=== PATIENT | female | born 1950 | race Caucasian/White ===

== ENCOUNTER → 2016-10-18 | Outpatient (CLI) | payer BC ==
[~2016-10-18] MED LIST: ALL180 PO; ASPI81TA21 PO; ATOR-22 PO; CHOL100010 PO; COEN30CA3 PO; CYAN10005 PO; DOCU-94 PO; FISHOIL PO; FLUT0.15 NAE; GLC5 PO; GLC500 PO; GLUCTAB7 PO; HYDC25 PO; INSU1INJ23 SC; LEVO75TA PO; LISI-725 PO; MONT1TAB3 PO; NVLGI SC; OMEP20CA59 PO
--- NOTE | 2016-10-22 12:23 | CODING QUERY MEDICAL NECESSITY ---
CQSUPPORTING DIAGNOSIS NEEDED A supporting diagnosis is required for the test/procedure performed on this patient in order for us to be reimbursed by the patient's insurance. Please provide a supporting diagnosis for the following test/procedure listed below next to the test name along with your signature. *If there is no additional diagnosis for this patient that would support the following test/procedure please document that below next to the test/procedure. Test(s)/Procedure(s) that require a supporting diagnosis: DOS 10/18/06 BONE DENSITY STUDIES Provider Signature: Date: Thank you Estee Garzon Health Information Management Once completed, please kindly fax back to [phone] For questions please call [phone]
== END | disposition home or self-care (01) ==
LOC: C.MAMM 12:51
PROVIDERS: ATTEND Internal Medicine
DX: M85.80 Other specified disorders of bone density and structure, unspecified site (principal); E55.9 Vitamin D deficiency, unspecified

== ENCOUNTER → 2017-04-08 | Outpatient (CLI) | payer BC ==
[2017-04-09 06:12] LABS: ESTIMATED AVERAGE GLUCOSE 157 mg/dl; HA1C FLAG Normal (Normal)
== END ==
LOC: C.LABBC 13:04
PROVIDERS: ATTEND Internal Medicine
DX: E11.65 Type 2 diabetes mellitus with hyperglycemia (principal); Z79.4 Long term (current) use of insulin; Z11.59 Encounter for screening for other viral diseases; E53.8 Deficiency of other specified B group vitamins

== ENCOUNTER → 2017-05-23 | Outpatient (CLI) | payer BC | END | disposition home or self-care (01) | LOC: C.LABBC 13:14 | PROVIDERS: ATTEND Internal Medicine | DX: E03.9 Hypothyroidism, unspecified (principal) ==

== ENCOUNTER → 2017-09-02 | Outpatient (CLI) | payer BC ==
[2017-09-03 06:38] LABS: ESTIMATED AVERAGE GLUCOSE 151 mg/dl; HA1C FLAG Normal (Normal)
== END | disposition home or self-care (01) ==
LOC: C.LABBC 13:29
PROVIDERS: ATTEND Nurse Practitioner Adult Health
DX: E11.9 Type 2 diabetes mellitus without complications (principal)

== ENCOUNTER → 2017-12-20 | Outpatient (CLI) | payer BC ==
[2017-12-20 13:58] LABS: HEMOGLOBIN A1C 7.1 % (4.5-5.6)
[2017-12-20 14:36] LABS: ALBUMIN 3.9 gm/dl (3.4-5.0); ALT/SGPT 28 U/L (12-78); BLOOD UREA NITROGEN 14 mg/dl (7-18); CALCIUM 9.3 mg/dl (8.5-10.1); CARBON DIOXIDE 27 mmol/L (21-32); CHOLESTEROL 141 mg/dl (0-200); CREATININE 0.77 mg/dl (0.60-1.20); GLUCOSE 139 mg/dl (70-99); POTASSIUM 3.6 mmol/L (3.5-5.1); SODIUM 136 mmol/L (136-145)
[2017-12-20 14:39] LABS: ALKALINE PHOSPHATASE 48 U/L (45-117); AST/SGOT 13 U/L (15-37); LDL CHOLESTEROL CALCULATED 63 mg/dl; TOTAL PROTEIN 7.4 gm/dl (6.4-8.2)
[2017-12-20 14:41] LABS: CREATININE RANDOM URINE 30.3 mg/dl
== END | disposition home or self-care (01) ==
LOC: C.LABBC 09:26
PROVIDERS: ATTEND Internal Medicine
DX: E11.9 Type 2 diabetes mellitus without complications (principal); E55.9 Vitamin D deficiency, unspecified; E53.8 Deficiency of other specified B group vitamins

== ENCOUNTER → 2018-01-09 | Outpatient (CLI) | payer BC ==
--- NOTE | 2018-01-09 12:04 | DIAGNOSTIC IMAGING REPORT ---
CAROTID DOPPLER NECK ART HISTORY: Mental status change TIA COMPARISON: None. TECHNIQUE: Real-time, grayscale, and color Doppler sonography of the carotid arteries was performed. Imaging reviewed in the transverse and longitudinal planes. All measurements were calculated based on NASCET criteria. FINDINGS: Antegrade flow is seen in the bilateral vertebral arteries. The brachial pressures are hemodynamically similar. Minimal plaque formation bilaterally. The peak systolic velocity within the right ICA is 77. The right systolic ratio is 1.1. The peak systolic velocity within the left ICA is 86. The left systolic ratio is 1.1. IMPRESSION: No hemodynamically significant stenosis seen within the carotid arteries. Minimal plaque formation bilaterally The above report was generated using voice recognition software. It may contain grammatical, syntax or spelling errors. Electronically signed by: Juma Garcias M.D. 01/09/2018 12:03 PM Dictated Date/Time: 01/09/2018 12:02 PM
== END | disposition home or self-care (01) ==
LOC: C.ULTRBC 10:49
PROVIDERS: ATTEND Internal Medicine
DX: G45.9 Transient cerebral ischemic attack, unspecified (principal)

== ENCOUNTER → 2018-05-16 | Outpatient (CLI) | payer BC ==
[~2018-05-16] MED LIST changes: +ASPI-319 PO; -ASPI81TA21 PO; -CHOL100010 PO; +CHOL1TAB76 PO; -FISHOIL PO; -GLC5 PO; -GLC500 PO; -HYDC25 PO; +HYDR12.56 PO; +INSDGI SC; -INSU1INJ23 SC; -LEVO75TA PO; +LEVO88TA PO; +METF-841 PO; -MONT1TAB3 PO; +NAPR-1231 PO; +NVLG SQ; -NVLGI SC; +OMEGCAP2 PO; -OMEP20CA59 PO; +PRT/20 PO; +TAMS0.4C38 PO; +ZSTI
[2018-05-16 17:17] LABS: BLOOD UREA NITROGEN 13 mg/dl (7-18); CALCIUM 8.8 mg/dl (8.5-10.1); CARBON DIOXIDE 26 mmol/L (21-32); CREATININE 0.74 mg/dl (0.60-1.20); GLUCOSE 61 mg/dl (70-99); POTASSIUM 3.2 mmol/L (3.5-5.1); SODIUM 139 mmol/L (136-145)
[2018-05-17 07:25] LABS: HEMOGLOBIN A1C 7.1 % (4.5-5.6)
== END | disposition home or self-care (01) ==
LOC: C.LABBC 13:44
PROVIDERS: ATTEND Nurse Practitioner Adult Health
DX: I10 Essential (primary) hypertension (principal); E03.9 Hypothyroidism, unspecified; E78.5 Hyperlipidemia, unspecified; E66.9 Obesity, unspecified; E11.9 Type 2 diabetes mellitus without complications; Z79.4 Long term (current) use of insulin; N20.0 Calculus of kidney

== ENCOUNTER → 2018-05-19 | Outpatient (CLI) | payer BC ==
--- NOTE | 2018-05-19 10:45 | DIAGNOSTIC IMAGING REPORT ---
CHEST 2 VIEWS ROUTINE HISTORY: 67 years-old Female N20.0 Nephrolithiasis preoperative exam in a patient with nephrolithiasis COMPARISON: Chest radiograph 01/11/2012 TECHNIQUE: PA and lateral views of the chest FINDINGS: Cardiac silhouette is within normal limits. Mild bilateral hilar prominence appears unchanged. There is no pneumothorax, pleural effusion, focal airspace consolidation or overt pulmonary edema. Suggested mild pleural thickening at the left lung apex. Surgical clips project over the upper abdomen. The bones appear grossly intact. IMPRESSION: No acute process. The above report was generated using voice recognition software. It may contain grammatical, syntax or spelling errors. Electronically signed by: Jacques Butler M.D. 05/19/2018 10:44 AM Dictated Date/Time: 05/19/2018 10:41 AM
--- NOTE | 2018-05-19 11:14 | DIAGNOSTIC IMAGING REPORT ---
KUB CLINICAL HISTORY: N20.0 Nephrolithiasis COMPARISON STUDY: CT scan dated 04/28/2018 FINDINGS: There is no pathologic bowel dilatation. There are 2 left pelvic basin calcifications consistent with distal left ureteral calculi. Each of these measures approximately 3 mm. IMPRESSION: 1. Tangential 3 mm left pelvic basin calcifications consistent with distal left ureteral calculi. Each calculus measures approximately 3 mm. Electronically signed by: Yannick Osborne M.D. 05/19/2018 11:13 AM Dictated Date/Time: 05/19/2018 11:10 AM
== END | disposition home or self-care (01) ==
LOC: C.RAD 09:48
PROVIDERS: ATTEND Urology
DX: N20.0 Calculus of kidney (principal)

== ENCOUNTER → 2018-05-23 | Outpatient (CLI) | payer BC ==
[~2018-05-23] MED LIST changes: -NAPR-1231 PO; -TAMS0.4C38 PO; -ZSTI
--- NOTE | 2018-05-23 10:49 | DIAGNOSTIC IMAGING REPORT ---
MRI OF THE BRAIN WITHOUT CONTRAST CLINICAL HISTORY: Transient ischemic attack. Episode of disorientation and blurred vision. COMPARISON STUDY: MRI of the brain November 01, 2013. TECHNIQUE: Utilizing a 1.5 Mary magnet and dedicated coil, multiplanar, multiecho imaging of the brain was performed without IV contrast. FINDINGS: There are no foci of restricted diffusion. No acute intracranial hemorrhage, midline shift or mass effect is present. Brain volume is normal. Ventricular system is normal. Basilar cisterns are patent. There are no extra-axial collections. Flow-voids for the major intracranial vessels are present. No intracranial masses identified on this unenhanced exam. A 5 mm cystic focus within the right cerebellar hemisphere is unchanged since MRI of November 01, 2013. This suggests a prominent perivascular space. There is mild sinus mucosal thickening. Orbits are unremarkable on this unenhanced exam. IMPRESSION: 1. No acute intracranial findings. No change since MRI of November 01, 2013. 2. Mild sinus mucosal thickening. Electronically signed by: Heri Platt M.D. 05/23/2018 10:48 AM Dictated Date/Time: 05/23/2018 10:45 AM
== END | disposition home or self-care (01) ==
LOC: C.MRI 09:59
PROVIDERS: ATTEND Internal Medicine
DX: F40.240 Claustrophobia (principal); R90.89 Other abnormal findings on diagnostic imaging of central nervous system; G45.9 Transient cerebral ischemic attack, unspecified; H53.8 Other visual disturbances; R41.0 Disorientation, unspecified

== ENCOUNTER → 2018-05-25 | Outpatient (CLI) | payer BC ==
--- NOTE | 2018-05-25 16:17 | DIAGNOSTIC IMAGING REPORT ---
KUB CLINICAL HISTORY: N20.0 NephrolithiasisTO BE DONE EITHER THE NIGHT BEFORE OR [facility] COMPARISON STUDY: 2017 FINDINGS: Interval passage of one of the 2 distal left ureteral calculi. Bowel pattern is nonobstructive. No additional nephrocalcinosis is seen. IMPRESSION: Interval passage of one of the 2 distal left ureteral calculi. The above report was generated using voice recognition software. It may contain grammatical, syntax or spelling errors. Electronically signed by: Juma Garcias M.D. 05/25/2018 4:16 PM Dictated Date/Time: 05/25/2018 4:14 PM
== END | disposition home or self-care (01) ==
LOC: C.RAD 15:43
PROVIDERS: ATTEND Urology
DX: N20.2 Calculus of kidney with calculus of ureter (principal)

== ENCOUNTER → 2018-05-26 | Day surgery (SDC) | payer BC ==
[2018-05-22 12:14] VITALS: Ht 149.9 cm; Wt 66.8 kg
[~2018-05-26] VITALS: Ht 149.9 cm; Wt 66.8 kg
[~2018-05-26] MED LIST changes: +ATROPINE SULFATE 0.1 MG/ML 5ML SYR IV PRN; +CIPROFLOXACIN 400MG / D5W IV SCH; +EpHEDrine SULFATE INJ 50 MG/ML AMP IV PRN; +FENTANYL CITRATE INJ 50 MCG/1 ML 2 ML VIAL ONE; +LACTATED RINGER'S 1000ML 1,000 ML IV SCH; +LIDOCAINE HCL 2% 2 ML VIAL (20MG/ML) ONE; +MIDAZOLAM HCL 1 MG/ML 2ML VIAL ONE; +ONDANSETRON INJ 2 MG/ML 2 ML VIAL ONE; +PROPOFOL IV EMULSION 10 MG/ML 20 ML VIAL ONE
[2018-05-26 08:21] LABS: CREATININE 0.79 mg/dl (0.60-1.20); POTASSIUM 3.9 mmol/L (3.5-5.1)
--- NOTE | 2018-05-26 08:25 | History & Physical Bridge Note ---
H&P Re-Evaluation Bridge Note: I have examined the patient, reviewed the History & Physical and in the interval since the performance of the History & Physical I have noted the following changes of clinical significance: No changes noted
--- NOTE | 2018-05-26 08:57 | Discharge Instructions ---
Discharge Instructions Date of Service May 26, 2018. Admission Reason for Admission: Stones Discharge Discharge Diagnosis / Problem: Likely passed distal stone on left. Discharge Goals Goal(s): Decrease discomfort, Improve function Activity Recommendations Activity Limitations: resume your previous activity Lifting Limitations: gradually increase as tolerated Exercise/Sports Limitations: gradually increase as tolerated . Instructions / Follow-Up Instructions / Follow-Up Likely passed stone. Unable to see stone on imaging. May have flank pain or blood in urine as stone passes. Call if any fevers or chills Current Hospital Diet Patient's current hospital diet: Discharge Diet Recommended Diet: Regular Diet Procedures Procedures Performed: Procedure cancelled as patient likely passed stone. Pending Studies Studies pending at discharge: no Laboratory Results Hemoglobin A1c Test 05/16/18 13:54 Range/Units Estimated Average Glucose 157 mg/dl Hemoglobin A1c 7.1 H 4.5-5.6 % Medical Emergencies . Who to Call and When: Medical Emergencies: If at any time you feel your situation is an emergency, please call 911 immediately. . Non-Emergent Contact Non-Emergency issues call your: Primary Care Provider, Urologist Call Non-Emergent contact if: you have a fever, temperature is above 101, temperature is above 101.5, your pain is not controlled, your pain is worsening , your pain is unusual for you . . "Provider Documentation" section prepared by Christopher Newman. .
[2018-05-26 09:43] VITALS: TEMP 36.6
[2018-05-26 10:05] VITALS: BP 125/79; PULSE 75; O2SAT 95
--- NOTE | 2018-05-26 10:12 | Anesthesia Progress Nt - [facility] ---
Anesthesia Post Op Note Date & Time May 26, 2018 at 10:12 Vital Signs Pain Intensity: 0 Vital Signs Past 12 Hours Date Time Temp Pulse Resp B/P (MAP) Pulse Ox O2 Delivery O2 Flow Rate FiO2 05/26/18 10:05 75 16 125/79 (94) 95 Room Air 05/26/18 09:43 36.6 78 16 123/77 (92) 95 Room Air Notes Mental Status: alert / awake / arousable, participated in evaluation Pt Amnestic to Procedure: Yes Nausea / Vomiting: adequately controlled Pain: adequately controlled Airway Patency, RR, SpO2: stable & adequate BP & HR: stable & adequate Hydration State: stable & adequate Anesthetic Complications: no major complications apparent
== END | disposition home or self-care (01) ==
LOC: X.SURG 07:03
PROVIDERS: ATTEND Urology
DX: N20.0 Calculus of kidney (principal); Z53.9 Procedure and treatment not carried out, unspecified reason